=== PATIENT | female | born 1940 | race Caucasian/White ===

== ENCOUNTER 2018-10-14 15:55 | Inpatient (IN) | payer MEDICARE, BC ==
[~2018-10-14] VITALS: Ht 149.9 cm; Wt 72.6 kg
[2018-10-14 16:10] VITALS: BP 151/60
--- NOTE | 2018-10-14 16:10 | NUR ---
GPS MAIL PROCESSING ASSOCIATE: ADMISSION DIRECT ADMITTED THIS 77 YR OLD FEMALE WITH DX: DANGER TO SELF. AWAKE, A/OX4; AMBULATORY. NO C/O PAIN OR ANY DISCOMFORT. DENIES SI/HI. DENIES AUDITORY/VISUAL HALLUCINATIONS. ORIENTED TO ROOM AND SURROUNDINGS. BARRY (ACNP) HERE AND AWARE OF NEW ADMISSION. DR. SHEA WAS NOTIFIED BY CN. VSS. NO DISTRESS NOTED. WILL MONITOR.
[2018-10-14] MEDS ORDERED: MAGNESIUM HYDROXIDE 30 ML UDC PO PRN (16:30)
[2018-10-14] MEDS ORDERED: MAG HYDROX/AL HYDROX/SIMETH 30 ML UDC PO PRN (16:30)
[2018-10-14 17:47] VITALS: BP 151/60
[2018-10-14] MEDS ORDERED: NORT25CA PO (17:52)
[2018-10-14] MEDS ORDERED: ALPR0.5T8 PO (17:52)
[2018-10-14] MEDS ORDERED: ESCI20TA PO (17:52)
[2018-10-14] MEDS ORDERED: LISI-603 PO (17:52)
[2018-10-14] MEDS ORDERED: RIVA10TA PO (17:52)
[2018-10-14] MEDS ORDERED: ROSU10TA2 PO (17:52)
[2018-10-14] MEDS ORDERED: PROP80CA PO (17:52)
[2018-10-14] MEDS ORDERED: RIZA10TA27 PO (17:54)
[2018-10-14] MEDS ORDERED: CHOL100040 PO (18:05)
[2018-10-14] MEDS ORDERED: DICY20TA11 PO (18:05)
--- NOTE | 2018-10-14 18:10 | NUR ---
GPS DOPE HOUSE OPERATOR HELPER: NOTES IN VISITING AT THIS TIME.
[2018-10-14] MEDS ORDERED: [UNRECOGNIZED DRUG - OTHER] IM/SC (18:18)
[2018-10-14] MEDS: ACETAMINOPHEN 325 MG TABLET PO PRN (19:23)
[2018-10-14 20:00] VITALS: BP 120/77
[2018-10-14] MEDS: LORAZEPAM 0.5 MG TABLET PO PRN (21:43)
--- NOTE | 2018-10-14 21:44 | NUR ---
GPS RN NOTES; PT.C/O ANXIETY ATIVAN 1 MG PO PRN GIVEN, PER PT. REQUEST, WILL CONTINUE TO MONITOR.
[2018-10-15 07:40] LABS: ALANINE AMINOTRANSFERASE 13 U/L (12-78); ALBUMIN 3.1 g/dL (3.4-5.0); ALKALINE PHOSPHATASE 51 U/L (46-116); ASPARTATE AMINOTRANSFERASE 19 U/L (15-37); BILIRUBIN,TOTAL 0.4 mg/dL (0.2-1.0); CARBON DIOXIDE 32 mmol/L (21-32); CHLORIDE 108 mmol/L (98-107); CHOLESTEROL 103 mg/dL (<200); CREATININE 0.8 mg/dL (0.6-1.3); GLUCOSE 97 mg/dL (74-106); HDL CHOLESTEROL 37 mg/dL (40-60); LDL 53 mg/dL (0-99); POTASSIUM 4.9 mmol/L (3.5-5.1); SODIUM SERUM 146 mmol/L (136-145); TRIGLYCERIDES 107 mg/dL (30-150); UREA NITROGEN, BLOOD 12 mg/dL (7-18)
[2018-10-15 08:00] VITALS: BP 137/71
[2018-10-15] MEDS: RIVAROXABAN 10 MG TABLET PO SCH (09:00)
[2018-10-15] MEDS: LISINOPRIL (20MG) 20 MG TABLET PO SCH (09:00)
[2018-10-15] MEDS ORDERED: PROPRANOLOL HCL 160 MG PO SCH (09:00)
[2018-10-15] MEDS: CHOLECALCIFEROL 1,000 UNIT TABLET (VIT D3) PO SCH (09:06)
[2018-10-15] MEDS ORDERED: DICYCLOMINE HCL 10 MG CAPSULE PO SCH (11:30)
[2018-10-15] MEDS: SUMATRIPTAN SUCCINATE 25 MG TABLET PO PRN (15:27)
[2018-10-15 16:00] VITALS: BP 140/66
--- NOTE | 2018-10-15 16:00 | NUR ---
JUS met with Pts Jerardo [phone] and discussed pts discharge plan and provided SW with collateral information. Per he wishes for pt to be discharged as soon as possible and does not want pt hospitalized longer than 72 hours. JUS informed him that pts psychiatrist Dr. Hernandez would discharge pt based on pts treatment compliance and medication stabilization and informed him that if Psychiatrist felt pt still meets criteria for hospitalization after the 72 hours pt will be recertified to a 14 day hold. JUS then explained that after the 72 hours pt will be scheduled for a probable cause hearing and will be assigned a pt advocate and during that time and pt can appeal hold for possible discharge. understood but stated he wished to speak with Psychiatrist regarding length of stay. JUS provided him with Dr. Hernandez's contact number and JUS also left Dr. Hernandez a note for call back in the nurses station.
[2018-10-15 20:25] VITALS: BP 142/72
[2018-10-15] MEDS: TRAZODONE 50 MG TABLET PO SCH (21:21)
[2018-10-16] MEDS: TEMAZEPAM 7.5 MG CAPSULE PO PRN ×2 (00:17→21:53)
[2018-10-16 08:00] VITALS: BP 128/69
[2018-10-16] MEDS: CHOLECALCIFEROL 1,000 UNIT TABLET (VIT D3) PO SCH (08:15)
[2018-10-16] MEDS: LISINOPRIL (20MG) 20 MG TABLET PO SCH (08:15)
[2018-10-16] MEDS: RIVAROXABAN 10 MG TABLET PO SCH (08:16)
[2018-10-16] MEDS ORDERED: DICYCLOMINE HCL 10 MG CAPSULE PO SCH (09:00)
--- NOTE | 2018-10-16 12:01 | NUR ---
INITIAL DISCHARGE PLAN: Patient wishes to be discharged home to [address] [place] [address]. Pts Jerardo [phone] also wishes for pt to return home. SW will help form a safe and proper discharge in collaboration with pt and
[2018-10-16] MEDS: SUMATRIPTAN SUCCINATE 25 MG TABLET PO PRN (13:15)
[2018-10-16 16:00] VITALS: BP 123/59
[2018-10-16 20:00] VITALS: BP 149/52
[2018-10-16] MEDS: TRAZODONE 50 MG TABLET PO SCH (21:38)
[2018-10-17 08:00] VITALS: BP 130/77
[2018-10-17] MEDS: CHOLECALCIFEROL 1,000 UNIT TABLET (VIT D3) PO SCH (08:18)
[2018-10-17] MEDS: RIVAROXABAN 10 MG TABLET PO SCH (08:18)
[2018-10-17] MEDS: LISINOPRIL (20MG) 20 MG TABLET PO SCH (08:19)
[2018-10-17] MEDS: PROPRANOLOL LA 60 MG CAP.SA.24H PO SCH (10:41)
[2018-10-17 16:00] VITALS: BP 131/55
[2018-10-17] MEDS: ATORVASTATIN 10 MG TABLET PO SCH (17:38)
[2018-10-17] MEDS: SUMATRIPTAN SUCCINATE 25 MG TABLET PO PRN (17:56)
--- NOTE | 2018-10-17 19:40 | NUR ---
RN OPENING NOTES RECEIVED REPORT FROM DAYSHIFT RN. FOUND Pt AWAKE, RESTING IN BED. VISITING AT BEDSIDE. NO S/S OF ACUTE DISTRESS OR SOB NOTED. RESPIRATIONS EVEN AND UNLABORED. SAFETY MEASURES IN PLACE. BED LOW, LOCKED, HOB ELEVATED, & SIDE RAILS UP. WILL CONTINUE TO MONITOR Pt's CONDITION AND SAFETY THROUGHOUT THE NIGHT.
--- NOTE | 2018-10-17 19:45 | NUR ---
RN NOTES TOOK Pt's CLOTHES HOME TO WASH.
[2018-10-17 20:00] VITALS: BP 153/62
[2018-10-17] MEDS: ACETAMINOPHEN 325 MG TABLET PO PRN (20:10)
[2018-10-17 21:00] VITALS: BP 153/62
[2018-10-17] MEDS: DIVALPROEX SODIUM 250 MG TABLET.DR PO SCH (21:00)
[2018-10-17] MEDS: TRAZODONE 50 MG TABLET PO SCH (21:19)
[2018-10-17] MEDS: TEMAZEPAM 7.5 MG CAPSULE PO PRN (21:20)
--- NOTE | 2018-10-17 22:00 | NUR ---
RN NOTES REFUSED MED FOR TONIGHT. WILL START DEPAKOTE Q12 STARTING TOMORROW MORNING.
[2018-10-18] MEDS: ACETAMINOPHEN 325 MG TABLET PO PRN ×2 (06:50→13:24)
--- NOTE | 2018-10-18 07:38 | NUR ---
RN RACHANA NOTES NO SIGNIFICANT CHANGES IN Pt's CONDITION. Pt REMAINS STABLE PER BASELINE. NO S/S OF ACUTE DISTRESS OR SOB NOTED DURING THE NIGHT. ALL NEEDS MET AND ATTENDED. SAFETY MEASURES IN PLACE. ENDORSED TO JELANI TORRE FOR Pt's BATOOL.
[2018-10-18 08:00] VITALS: BP 134/59
[2018-10-18] MEDS: SUMATRIPTAN SUCCINATE 25 MG TABLET PO PRN (08:16)
[2018-10-18] MEDS: DIVALPROEX SODIUM 250 MG TABLET.DR PO SCH ×2 (09:02→21:38)
[2018-10-18] MEDS: RIVAROXABAN 10 MG TABLET PO SCH (09:02)
[2018-10-18] MEDS: LISINOPRIL (20MG) 20 MG TABLET PO SCH (09:03)
[2018-10-18] MEDS: CHOLECALCIFEROL 1,000 UNIT TABLET (VIT D3) PO SCH (09:03)
[2018-10-18] MEDS: PROPRANOLOL LA 60 MG CAP.SA.24H PO SCH (09:06)
--- NOTE | 2018-10-18 15:27 | NUR ---
quiet,compliant,no distress,spouse in visiting.
[2018-10-18 16:00] VITALS: BP 126/78
[2018-10-18 20:00] VITALS: BP 150/57
[2018-10-18] MEDS ORDERED: TRAZODONE 50 MG TABLET ONE (22:14)
[2018-10-18] MEDS: TRAZODONE 50 MG TABLET PO SCH (22:26)
[2018-10-18] MEDS: TEMAZEPAM 7.5 MG CAPSULE PO PRN (22:53)
[2018-10-19 08:00] VITALS: BP 128/79
[2018-10-19] MEDS: DIVALPROEX SODIUM 250 MG TABLET.DR PO SCH ×2 (09:06→21:10)
[2018-10-19] MEDS: CHOLECALCIFEROL 1,000 UNIT TABLET (VIT D3) PO SCH (09:08)
[2018-10-19] MEDS: PROPRANOLOL LA 60 MG CAP.SA.24H PO SCH (09:08)
[2018-10-19] MEDS: RIVAROXABAN 10 MG TABLET PO SCH (09:11)
[2018-10-19] MEDS: LISINOPRIL (20MG) 20 MG TABLET PO SCH (09:13)
[2018-10-19] MEDS: SUMATRIPTAN SUCCINATE 25 MG TABLET PO PRN (11:21)
[2018-10-19 16:00] VITALS: BP 111/86
[2018-10-19 20:25] VITALS: BP 130/90
[2018-10-19] MEDS: TRAZODONE 50 MG TABLET PO SCH (21:11)
[2018-10-19] MEDS: ACETAMINOPHEN 325 MG TABLET PO PRN (21:49)
[2018-10-19] MEDS: LORAZEPAM 0.5 MG TABLET PO PRN (22:46)
[2018-10-19 23:08] VITALS: BP 128/65
[2018-10-20 08:00] VITALS: BP 130/75
[2018-10-20] MEDS: DIVALPROEX SODIUM 250 MG TABLET.DR PO SCH ×2 (09:08→20:46)
[2018-10-20] MEDS: CHOLECALCIFEROL 1,000 UNIT TABLET (VIT D3) PO SCH (09:08)
[2018-10-20] MEDS: LISINOPRIL (20MG) 20 MG TABLET PO SCH (09:09)
[2018-10-20] MEDS: LORAZEPAM 0.5 MG TABLET PO PRN ×2 (09:29→20:59)
[2018-10-20] MEDS: RIVAROXABAN 10 MG TABLET PO SCH (09:31)
[2018-10-20] MEDS: PROPRANOLOL LA 60 MG CAP.SA.24H PO SCH (09:32)
[2018-10-20] MEDS: ACETAMINOPHEN 325 MG TABLET PO PRN ×2 (15:12→23:50)
--- NOTE | 2018-10-20 15:17 | NUR ---
RN NOTE :MEDICATED WITH TYLENOL 650MG FOR NECK PAIN WILL CONTINUE TO MONITOR .
[2018-10-20 16:00] VITALS: BP 121/77
[2018-10-20] MEDS: ATORVASTATIN 10 MG TABLET PO SCH (17:48)
[2018-10-20 20:09] VITALS: BP 139/59
--- NOTE | 2018-10-20 21:00 | NUR ---
GPS RN NOTES : PT. C/O FEELING ANXIETY, ATIVAN 1 MG PO PRN GIVEN PER PT. REQUEST , WILL CONTINUE TO MONITOR.
[2018-10-20 21:37] VITALS: BP 130/64
[2018-10-20] MEDS: TRAZODONE 50 MG TABLET PO SCH (22:16)
[2018-10-21] MEDS: LORAZEPAM 0.5 MG TABLET PO PRN (03:08)
[2018-10-21 08:00] VITALS: BP 147/72
[2018-10-21] MEDS: RIVAROXABAN 10 MG TABLET PO SCH (08:52)
[2018-10-21] MEDS: DIVALPROEX SODIUM 250 MG TABLET.DR PO SCH ×2 (08:52→21:27)
[2018-10-21] MEDS: LISINOPRIL (20MG) 20 MG TABLET PO SCH (08:53)
[2018-10-21] MEDS: CHOLECALCIFEROL 1,000 UNIT TABLET (VIT D3) PO SCH (08:53)
[2018-10-21] MEDS: PROPRANOLOL LA 60 MG CAP.SA.24H PO SCH (08:55)
[2018-10-21] MEDS: SUMATRIPTAN SUCCINATE 25 MG TABLET PO PRN (10:24)
[2018-10-21] MEDS: ACETAMINOPHEN 325 MG TABLET PO PRN ×2 (11:44→20:04)
[2018-10-21] MEDS: HYDROCODONE/APAP 5/325MG 1 EACH TABLET PO PRN (15:14)
[2018-10-21 16:00] VITALS: BP 120/55
[2018-10-21] MEDS: TRAZODONE 50 MG TABLET PO SCH (21:27)
[2018-10-21 21:50] VITALS: BP 146/66
[2018-10-22] MEDS: HYDROCODONE/APAP 5/325MG 1 EACH TABLET PO PRN (01:31)
[2018-10-22 08:00] VITALS: BP 100/64
[2018-10-22] MEDS: RIVAROXABAN 10 MG TABLET PO SCH (09:45)
[2018-10-22] MEDS: LISINOPRIL (20MG) 20 MG TABLET PO SCH (09:46)
[2018-10-22] MEDS: CHOLECALCIFEROL 1,000 UNIT TABLET (VIT D3) PO SCH (09:46)
[2018-10-22] MEDS: DIVALPROEX SODIUM 250 MG TABLET.DR PO SCH (09:46)
[2018-10-22 09:48] VITALS: BP 100/64
[2018-10-22] MEDS: PROPRANOLOL LA 60 MG CAP.SA.24H PO SCH (09:48)
[2018-10-22] MEDS: ACETAMINOPHEN 325 MG TABLET PO PRN (09:56)
--- NOTE | 2018-10-22 11:03 | NUR ---
SW contacted Pts Jerardo [phone] to confirm picking tech for pts discharge on this present day.
--- NOTE | 2018-10-22 11:12 | NUR ---
DISCHARGE NOTE: Pt is discharging at 12:00pm via private vehicle home to [address] [place] [address]. Pts Jerardo [phone] will be picking pt up and transporting pt home. Pts mood is euthymic with congruent affect. Pt denied visual/auditory hallucinations and denied suicidal/homicidal ideations. Pt will continue psychiatric treatment with Dr. Paris Rosado [address], [place] [address] [phone] and has a follow up appointment on Saturday10/24/18 at 2:30pm. Pt will also address misuse of prescription drugs during that time. SW also provided pt with resources to outpatient substance abuse programs with [facility] Address: [address], [place] [address] . Pt will also follow up with [facility]: [phone] [address], [place], [place] [id number] [phone]. The multidisciplinary exitcare form was done, printed, signed, and given to the patient.
--- NOTE | 2018-10-22 11:18 | NUR ---
JUS faxed BATOOL paperwork to Dr. Paris Rosado [address], [place] [address] [phone] fax: [phone].
--- NOTE | 2018-10-22 12:30 | NUR ---
MARINE FUEL DOCK ATTENDANT NOTE :PATIENT ALERT ,VERBALLY RESPONSIVE ,DENIES SI/HI/AVH.MED COMPLIANT VS STABLE .NO S/S OF DISTRESS NOTE .SEEN BY DR.SAM DUKE AND CALLED BACK WITH DISCHARGE ORDERS ALL ORDERS CARRIED OUT .ALL BELONGINGS RETURNED TO PATIENT .PRESCRIPTIONS GIVEN TO PATIENT AND AND EXPLAINED ABLE TO VERBALIZE UNDERSTANDING .PATIENT DISCHARGE WITH WITH PRIVATE CAR.
--- NOTE | 2018-11-03 13:09 | NUR ---
15 DAY SUBSTANCE ABUSE FOLLOW UP: SW attempted to contact pt for follow up left voicemail for callback.
--- NOTE | 2018-11-04 14:40 | NUR ---
15 DAY SUBSTANCE ABUSE FOLLOW UP: SW attempted to contact pt for follow up left voicemail for callback.
--- NOTE | 2018-11-05 13:10 | NUR ---
15 DAY SUBSTANCE ABUSE FOLLOW UP: unable to follow up due to 3 unsuccessful attempts.
== END 2018-10-22 15:00 | disposition home or self-care (01) | DRG 885 ==
LOC: GPS 15:56
PROVIDERS: ADMIT Psychiatry & Neurology Psychiatry; ATTEND Psychiatry & Neurology Psychiatry
DX: F39 Unspecified mood [affective] disorder (principal); I48.92 Unspecified atrial flutter; F32.9 Major depressive disorder, single episode, unspecified; F29 Unspecified psychosis not due to a substance or known physiological condition; E78.5 Hyperlipidemia, unspecified; G43.909 Migraine, unspecified, not intractable, without status migrainosus; I10 Essential (primary) hypertension; E66.9 Obesity, unspecified; I48.2 Chronic atrial fibrillation; I25.10 Atherosclerotic heart disease of native coronary artery without angina pectoris; Z79.01 Long term (current) use of anticoagulants; Z95.0 Presence of cardiac pacemaker; Z68.32 Body mass index [BMI] 32.0-32.9, adult; Z91.5 Personal history of self-harm
CPT/HCPCS: 36415; 80053-TC; 80061-TC; 80164-TC; 87081-TC